=== PATIENT | female | born 2000 ===

== ENCOUNTER 2020-02-12 19:44 | Observation (INO) ==
[2020-02-12] MEDS ORDERED: Haloperidol Lactate 5 MG/ML VIAL IM PRN (20:05)
[2020-02-12] MEDS ORDERED: Mag Hydrox/Al Hydrox/Simeth 30 ML UDC PO PRN (20:05)
[2020-02-12] MEDS ORDERED: Ibuprofen 400 MG TABLET PO PRN (20:05)
[2020-02-12] MEDS ORDERED: *HR* LORazepam 2 MG/ML VIAL IM PRN (20:05)
[2020-02-12] MEDS ORDERED: traZODone 50 MG TABLET PO PRN (20:05)
[2020-02-12] MEDS ORDERED: *HR* LORazepam 1 MG TABLET PO PRN (20:05)
[2020-02-12] MEDS ORDERED: hydrOXYzine pamoate 25 MG CAPSULE PO PRN (20:05)
[2020-02-12] MEDS ORDERED: MOM Conc 10 ML UD.LIQ PO PRN (20:05)
[2020-02-12] MEDS ORDERED: haloperidoL 5 MG TABLET PO PRN (20:05)
[2020-02-13] MEDS: Nicotine 2 MG GUM BC PRN ×2 (07:34→12:08)
[2020-02-13 09:06] VITALS: BP 111/79
== END 2020-02-13 13:45 | disposition home or self-care (01) ==
LOC: 1ANU 19:44 → INTOOBSV 19:44
PROVIDERS: ADMIT Psychiatry & Neurology Psychiatry; ATTEND Psychiatry & Neurology Psychiatry